=== PATIENT | male | born 1955 | race African-American/Black ===

== ENCOUNTER 2025-08-08 13:34 | Outpatient (AMB) | payer MEDICARE, SELFPAY ==
--- OUTSIDE RECORDS SUMMARY | 2022-06-30 17:32 | XMS_ITS | Encounter Summary ---
Author Organization [facility] Address [address] [place] [address] Care Team Providers Care Fisher Trap Name Role Phone Unavailable Primary Care Provider Unavailabl e Encounter Details Date Type Department Care Team ([facility] Contact Info) Description 06/30/2022 6:32 PM EDT Hospital Encounter [facility] [address] [place] [address] Lacho Doe MD [address] [place] [address] Social History Tobacco Use Types Packs/Day Years Used Date Smoking Tobacco: Never Smokeless Tobacco: Never Alcohol Use Standard Drinks/Week Comments Yes 0 (1 standard drink = 0.6 oz pur e alcohol) Sex and Gender Information Value Date Recorded Sex Assigned at Not on file Legal Sex Male 2:03 PM EDT Gender Identity Not on file Sexual Orientation Not on file COVID-19 Exposure Response Date Recorded In the last 10 days, have yo u been in contact with someone who was confirmed or suspected to have Coronavirus/COVID-19? Unable to assess 06/30/2022 5:55 PM EDT documented as of this encounter Plan of Treatment Not on file documented as of this encounter Procedures Procedure Name Priority Date/Time Associated Diagnosis Comments XR CHEST 2 VIEWS STAT 06/30/2022 6:44 PM EDT Acute cough documented in this encounter Results * XR Chest 2 views (06/30/2022 6:44 PM EDT) Anatomical Region Laterality Modality Chest Computed Radiogr aphy 06/30/2022 8:27 PM EDT Impressions 06/30/2022 8:28 PM EDT No acute cardiopulmonary findings. Narrative 06/30/2022 8:28 PM EDT EXAM: XR CHEST 2 VIEWS on 06/30/2022 6:32 PM CLINICAL HISTORY: REILLY MILLER is a 66 years old patient with a submitted history of cough. ADDITIONAL HISTORY: Acute cough COMPARISONS: None TECHNIQUE: PA and lateral views FINDINGS: HEART AND MEDIASTINUM: Within normal limits. VASCULARITY: Normal. LUNGS: Clear. PLEURAE: No effusion or pneumothorax. Procedure Note Julianna Carmichael MD - 06/30/2022 EXAM: XR CHEST 2 VIEWS on 06/30/2022 6:32 PM CLINICAL HISTORY: REILLY MILLER is a 66 years old patient with a submitted history of cough. ADDITIONAL HISTORY: Acute cough COMPARISONS: None TECHNIQUE: PA and lateral views FINDINGS: HEART AND MEDIASTINUM: Within normal limits. VASCULARITY: Normal. LUNGS: Clear. PLEURAE: No effusion or pneumothorax. IMPRESSION: No acute cardiopulmonary findings. [facility] ORDERABLE S Final Result documented in this encounter Visit Diagnoses Not on filedocumented in this encounter
--- OUTSIDE RECORDS SUMMARY | 2024-06-30 07:54 | XMS_ITS | Encounter Summary ---
Author Organization [facility] [place] [address] Care Team Providers Care Literary Writer Name Role Phone Noe White MD Primary Care Provider [phone] Encounter Details Date Type Department Care Team (Late st Contact Info) Description 06/30/2024 8:54 AM EDT Hospital Encounter TH HISTORIC ENCOUNTERS EASTERN CONVERSION ONLY Paula Delgado, ALICJA [address] [place] [address] Social History Tobacco Use Types Packs/Day Years Used Date Smoking Tobacco: Never Smokeless Tobacco: Never Alcohol Use Standard Drinks/Week Comments Yes 5 (1 standard drink = 0.6 oz pur e alcohol) Sex and Gender Information Value Date Recorded Sex Assigned at Not on file Legal Sex Male 10:06 PM EST Gender Identity Not on file Sexual Orientation Not on file documented as of this encounter Last Filed Vital Signs Vital Sign Reading Time Taken Comments Blood Pressure 142/80 06/30/2024 8:54 AM EDT Sitting Right arm Pulse 114 06/30/2024 8:54 AM EDT Temperature - - Respiratory Rate - - Oxygen Saturation - - Inhaled Oxygen Concentration - - Weight 143 kg (315 lb) 06/30/2024 8:54 AM EDT Height 165.1 cm (5' 5 ) 06/30/2024 8:54 AM EDT Body Mass Index 52.42 06/30/2024 8:54 AM EDT documented in this encounter Progress Notes * ALICJA Wells - 06/30/2024 9:00 AM EDT GASTROENTEROLOGY PROGRESS NOTE: REFERRING PHYSICIAN: Noe White MD [address] [place] [address] CHIEF COMPLAINT: Annual follow-up HISTORY OF PRESENT ILLNESS: Albert Hernández is a 68 y.o. male with a history of hyperlipidemia, diabetes and GERD presents to theGI office today for an annual follow-up visit. Patient last saw Dr. Anton in June 2023. Overall at patient's last office visit patient was doing well on Prilosec 40 mg daily for his history of GERD. He had recurrent symptoms in the past when he weaned down to every other day a few yearsprior. No dysphagia. ?? 11/03/2022 EGD showed fundic gland polyps, no H. pylori infection or Enriquez's esophagus. Colonoscopyat that time showed few adenomas. 3-year surveillance was recommended, to be due in October 2025. ?? He never smoked. Social alcohol use. Denies family h/o colon or gastric cancer. Overall patient's last office visit, it was recommended that patient stay on Prilosec 40 mg howevertry and decrease this to every other day. GERD diet and lifestyle was reinforced. Recommend checking vitamin D, vitamin B12 and magnesium level yearly. He never started vitamin D supplementation as previously recommended. On 07/19/2023 patient had a normal magnesium and vitamin B12 level. Vitamin D was low in which patient was advised to start 1000 international units of vitamin D supplementation daily with follow-up labs again in 1 year. Patient is coming to see me today for a follow-up visit. He remains on Prilosec 40 mg daily and is doing well. He never tried to wean this down to every other day. No dysphagia, odynophagia or unintentional weight loss. He is moving his bowels regularly. No abdominal pain, nausea, vomiting or blood in the stool. He has been taking an fpzv-vzx-pykpzbu vitamin D supplementation he believes 1000 international units daily. Of note, patient has a history of diabetes and is taking Lantus insulin and Mounjaro. Of note, in December 2022, patient had a nuclear stress test which showed myocardial perfusion imaging was normal. No evidence of pharmacologically-induced myocardial ischemia. Normal left ventricular size and systolic function. The LVEF is 65%. PROBLEM LIST: Patient Active Problem List Diagnosis SNOMED CT(R) ??? Lumbar herniated disc PROLAPSED LUMBAR INTERVERTEBRAL DISC ??? Esophagitis, reflux GASTRO-ESOPHAGEAL REFLUX DISEASE WITH ESOPHAGITIS ??? Morbid obesity (HCC) MORBID OBESITY ??? Difficult intravenous access DIFFICULT VENOUS ACCESS ??? GERD (gastroesophageal reflux disease) GASTROESOPHAGEAL REFLUX DISEASE ??? Encounter for screening colonoscopy PATIENT ENCOUNTER STATUS ??? Personal history of colon polyps, unspecified HISTORY OF POLYP OF COLON PAST MEDICAL HISTORY: Past Medical History: Diagnosis Date ??? Anemia ??? Diabetes mellitus, type II (HCC) ??? REAL (dyspnea on exertion) ??? GERD (gastroesophageal reflux disease) ??? Hypertension ??? Peripheral neuropathy LEFT FOOT PAST SURGICAL HISTORY: Past Surgical History: Procedure Laterality Date ??? BACK SURGERY ??? BICEPS TENDON REPAIR Right 1997 ??? COLONOSCOPY December 2011 Sigmoid diverticulosis. Hyperplastic polyp. Internal hemorrhoids. November 2007- hyperplastic polyps ??3. ??? COLONOSCOPY N/A 11/03/2022 Procedure: COLONOSCOPY pediscope; Surgeon: Ava Anton MD; Location: [facility]; Service: Gastroenterology; Laterality: N/A; 11/03/22 at 10:30 am 50 minutes plus 10 minutes for cleanup insurance in [facility] ??? JOINT REPLACEMENT Left 2013 knee ??? LUMBAR DISC SURGERY 20 years ago ??? LUMBAR EPIDURAL INJECTION N/A 05/05/2018 Procedure: Caudal Epidural with Cath; Surgeon: Marcelino Basurto MD; Location: [facility]; Service:Anesthesiology; Laterality: N/A; ??? LUMBAR EPIDURAL INJECTION N/A 02/01/2018 Procedure: Caudal epidural Block with Cath; Surgeon: Marcelino Basurto MD; Location: [facility]; Service: Anesthesiology; Laterality: N/A; ??? LUMBAR EPIDURAL INJECTION N/A 08/18/2016 Procedure: INJECTION STEROID LUMBAR EPIDURAL; Surgeon: Marcelino Basurto MD; Location: [facility]; Service: Anesthesiology; Laterality: N/A; ??? ROTATOR CUFF REPAIR Bilateral ??? TOTAL KNEE ARTHROPLASTY Left 2013 ??? TOTAL KNEE ARTHROPLASTY Right 09/16/2017 Procedure: REPLACEMENT TOTAL KNEE; Surgeon: Jonatan Kahn MD; Location: [facility]); Service: Orthopedics; Laterality: Right; ??? UMBILICAL HERNIA REPAIR ??? UPPER GASTROINTESTINAL ENDOSCOPY November 2007 Hiatal hernia. Reflux esophagitis. ??? UPPER GASTROINTESTINAL ENDOSCOPY N/A 11/03/2022 Procedure: UPPER ENDOSCOPY-EGD pediscope 50 minutes plus 10 minutes for cleanup; Surgeon: Ava Anton MD; Location: [facility]; Service: Gastroenterology; Laterality: N/A; 11/03/22 at 10:30am 50 minutes plus 10 minutes for cleanup insurance in [facility] FAMILY HISTORY: Family History Problem Relation Age of Onset ??? Breast cancer Mother 20 ??? Hypertension Father ??? Stroke Father ??? Heart disease Father ??? Cancer Sister 32 OVARIAN SOCIAL HISTORY: Social History Socioeconomic History ??? Marital status: Spouse name: Not on file ??? Number of children: Not on file ??? Years of education: Not on file ??? Highest education level: Not on file Occupational History ??? Not on file Tobacco Use ??? Smoking status: Never ??? Smokeless tobacco: Never Substance and Sexual Activity ??? Alcohol use: Yes Alcohol/week: 5.0 standard drinks of alcohol Types: 5 Cans of beer per week Comment: occasional ??? Drug use: No ??? 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 Other Topics Concern ??? Not on file Social History Narrative ??? Not on file Social Determinants of Health Financial Resource Strain: Not on file Food Insecurity: Not on file Transportation Needs: Not on file Social Connections: Not on file Housing Stability: Not on file MEDICATIONS: Current Outpatient Medications Medication Sig Dispense Refill ??? dilTIAZem (CARDIZEM LA) 300 MG 24 hr tablet ??? GRX ANALGESIC BALM (ICY HOT BALM EXTRA STRENGTH) OINT ointment Apply 1 application. topically daily as needed. ??? Lantus SoloStar 100 UNIT/ML injection 80 Units daily. ??? Mounjaro 12.5 MG/0.5ML INJECT 1 PEN UNDER THE SKIN WEEKLY ??? omeprazole (PriLOSEC) 40 MG capsule Take 1 capsule (40 mg total) by mouth daily. 90 capsule 0 ??? omeprazole (PriLOSEC) 40 MG capsule Take 1 capsule (40 mg total) by mouth daily. 90 capsule 3 ??? valsartan-hydrochlorothiazide (DIOVAN HCT) tablet 160-12.5 mg Take 1 tablet by mouth daily. No current facility-administered medications for this visit. ALLERGIES: Allergies Allergen Reactions ??? Etodolac Itching and Other (See Comments) REVIEW OF SYSTEMS: Review of Systems Constitutional: Negative for chills, fatigue and fever. HENT: Negative for sore throat and trouble swallowing. Respiratory: Negative for cough, shortness of breath and wheezing. Cardiovascular: Negative for chest pain, palpitations and leg swelling. Gastrointestinal: Negative for abdominal distention, abdominal pain, anal bleeding, blood in stool,constipation, diarrhea, nausea and vomiting. Genitourinary: Negative for dysuria and frequency. Musculoskeletal: Negative for arthralgias and back pain. Neurological: Negative for dizziness, light-headedness and headaches. Psychiatric/Behavioral: Negative for agitation, behavioral problems and confusion. VITAL SIGNS: Vitals: 06/30/24 0854 BP: 142/80 Pulse: 114 SpO2: 96% Weight: (!) 142.9 kg (315 lb) Height: 5' 5 (1.651 m) Body mass index is 52.42 kg/m??. PHYSICAL EXAM: Physical Exam Constitutional: General: He is not in acute distress. Appearance: He is not toxic-appearing or diaphoretic. HENT: Head: Normocephalic and atraumatic. Eyes: General: No scleral icterus. Cardiovascular: Rate and Rhythm: Normal rate and regular rhythm. Heart sounds: Normal heart sounds. No murmur heard. No gallop. Pulmonary: Effort: No respiratory distress. Breath sounds: Normal breath sounds. No wheezing, rhonchi or rales. Abdominal: General: Bowel sounds are normal. There is no distension. Palpations: Abdomen is soft. Tenderness: There is no abdominal tenderness. There is no guarding or rebound. Skin: General: Skin is warm. Neurological: Mental Status: He is alert and oriented to person, place, and time. Psychiatric: Mood and Affect: Mood normal. Behavior: Behavior normal. LABS: No visits with results within 6 Month(s) from this visit. Latest known visit with results is: Office Visit on 06/30/2023 Component Date Value Ref Range Status ??? VITAMIN B12 07/23/2023 790 200 - 1,100 pg/mL Final ??? Vitamin D,25-OH, Total 07/23/2023 25 (L) 30 - 100 ng/mL Final Comment: Vitamin D Status 25-OH Vitamin D: Deficiency: <20 ng/mL Insufficiency: 20 - 29 ng/mL Optimal: > or = 30 ng/mL For 25-OH Vitamin D testing on patients on D2-supplementation and patients for whom quantitation of D2 and D3 fractions is required, the QuestAssureD(TM) 25-OH VIT D, (D2,D3), LC/MS/MS is recommended: order code 42567 (patients >2yrs). See Note 1 Note 1 For additional information, please refer to http://education.Zipzoom/faq/FIM404 (This link is being provided for informational/ educational purposes only.) ??? MAGNESIUM 07/23/2023 1.8 1.5 - 2.5 mg/dL Final IMAGING: No results found. ASSESSMENT: Problem List Items Addressed This Visit Gastroenterology Problems GERD (gastroesophageal reflux disease) Relevant Medications omeprazole (PriLOSEC) 40 MG capsule Other Personal history of colon polyps, unspecified Other Visit Diagnoses Long-term current use of proton pump inhibitor therapy - Primary Relevant Orders Magnesium 25-Hydroxy Vitamin D Vitamin B12 PLAN: 1. GERD- See HPI for full details. Plan: -Patient is overall doing well Prilosec 40 mg daily. He never previously tried to wean down to every other day as previously recommended. He is going to give this a try. If he notices any recurrent symptoms he will go back to daily dosing. A refill was sent to his desired pharmacy. No alarm symptoms present to warrant any need for repeat EGD. -Plan to check yearly vitamin B12, magnesium and vitamin D levels. He does take a vitamin D supplementation at baseline. -Follow-up in 1 year or sooner.. 2. HX colon polyps- See HPI for full details. Plan: -Repeat colonoscopy due in October 2025. ORDERS: Orders Placed This Encounter Procedures ??? Magnesium Standing Status: Future Number of Occurrences: 1 Standing Expiration Date: 06/30/2025 Order Specific Question: Release to patient Answer: Immediate [1] ??? 25-Hydroxy Vitamin D Standing Status: Future Number of Occurrences: 1 Standing Expiration Date: 06/30/2025 Order Specific Question: Release to patient Answer: Immediate [1] ??? Vitamin B12 Standing Status: Future Number of Occurrences: 1 Standing Expiration Date: 06/30/2025 Order Specific Question: Release to patient Answer: Immediate [1] Prescriptions Ordered This Encounter Medications ? omeprazole (PriLOSEC) 40 MG capsule Sig: Take 1 capsule (40 mg total) by mouth daily. Dispense: 90 capsule Refill: 3 ALICJA [facility] documented in this encounter Plan of Treatment Not on file documented as of this encounter Visit Diagnoses Not on filedocumented in this encounter Care Teams Literary Writer Relationship Specialty Start Date End Date Noe White MD [address] [place] [address] PCP - General Internal Medicine 10/31/14 documented as of this encounter
--- NOTE | 2025-08-08 13:40 | HO.NEPHOV ---
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: No Accompanied by: Self / Same As Patient Allergies lodine Allergy (Unknown, Uncoded 07/20/25 15:05) Unknown Medication List - Last Reconciled 08/08/25 by Dylan Zamudio MD atorvastatin 40 mg PO DAILY cholecalciferol (vitamin D3) 25 mcg PO DAILY diltiazem HCl CD 300 mg PO DAILY insulin glargine (Lantus Solostar U-100 Insulin) 76 units subcut QAM insulin lispro-aabc (Lyumjev KwikPen U-200 Insulin) 8 units subcut TID PRN omeprazole 40 mg PO DAILY tirzepatide (Mounjaro) mg subcut QWEEK valsartan-hydrochlorothiazide 320-25 mg 1 tab PO DAILY HPI Comments Details: History of Present Illness The patient is a 69 year old male presenting for evaluation of decreased kidney function. He was referred by his primary care physician, Dr. White, after lab work showed reduced kidney function, a finding the patient was not previously aware of. The patient has a history of diabetes for approximately 3-4 years or possibly longer and hypertension for which he has been on long-term medication. He takes Mounjaro and has lost approximately 40 pounds from a starting weight of 343 pounds. He reports symptoms of shortness of breath that occurs after showering, which has been present for about a year, as well as general fatigue. He also notes an intermittent urinary stream and occasional foamy urine. He denies neuropathy, hematuria, kidney stones, nausea, vomiting, or swelling in his legs. 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 His family history is notable for a son with diabetes, a mother who from breast cancer, and a sister with a history of breast cancer. There is no known family history of kidney failure or dialysis. Results - Labs: Kidney function is reportedly at 23%. 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 Comfortable. HENT: Neck supple. Mucosa moist. Pulmonary: Lungs aeration equal. No rales. Cardiology: Heart S1-S2 heard. No gallop. Abdomen: Soft. Non tender. Bowel sounds normal. Neurologic: No involuntary movements. No myoclonus. Extremities: No edema. No rash. Vital Signs: Last Vital Signs Pulse 106 H 08/08/25 13:41 BP 110/70 08/08/25 13:54 Pulse Ox 96 08/08/25 13:41 Oxygen Delivery Method Room Air 08/08/25 13:41 BMI result Body Mass Index 53.1 Assessment & Plan Assessment & Plan (1) CKD (chronic kidney disease): Code(s): N18.9 - Chronic kidney disease, unspecified Category: Medical Plan Plan 1. Chronic Kidney Disease - The patient's kidney function is at approximately 23%, likely secondary to long-standing diabetes. - Further workup will include additional blood tests, urine tests, and a kidney ultrasound. - His antihypertensive medication will be adjusted by discontinuing valsartan/hydrochlorothiazide 320/25 mg and starting valsartan 160 mg. - He was advised to avoid NSAIDs (Advil, Aleve, Motrin) and to use Tylenol as an alternative for pain. - Recommendations were made to reduce dietary salt and maintain adequate hydration. - A discussion was held regarding the potential need for dialysis if kidney function falls to 10% or less. - Follow-up is scheduled for September 12 to review lab results, which are to be drawn on September 03. 2. Diabetes Mellitus - The patient's long-standing diabetes is the presumed cause of his chronic kidney disease. - No changes will be made to his current diabetes medication regimen, which includes Mounjaro. 3. Hypertension - Blood pressure was well-controlled in the office with readings of 120/74 mmHg and 110/60 mmHg. - His medication will be adjusted from valsartan/hydrochlorothiazide to a lower dose of valsartan alone to provide better kidney protection while maintaining blood pressure control. Patient Instructions - Stop taking your current blood pressure pill, which is valsartan combined with hydrochlorothiazide. - Start taking valsartan 160 mg once a day. - Please get blood work done on September 03. - We will also order an ultrasound of your kidneys. - Avoid taking pain medications like Advil, Aleve, Motrin, and ibuprofen. - It is safe to take Tylenol if you need pain relief. - Eat less salt in your diet and drink plenty of water. - Your follow-up appointment is scheduled for September 05. Orders: Orders UA and rflx microscopic 3 Weeks N18.9 - Chronic kidney disease, unspecified Complete Blood Count no Diff 3 Weeks N18.9 - Chronic kidney disease, unspecified Parathyroid Hormone Intact 3 Weeks N18.9 - Chronic kidney disease, unspecified Protein Electrophoresis, Serum 3 Weeks N18.9 - Chronic kidney disease, unspecified Comprehensive Met. Panel 3 Weeks N18.9 - Chronic kidney disease, unspecified Creatinine Urine 3 Weeks N18.9 - Chronic kidney disease, unspecified Total Protein Urine Random 3 Weeks N18.9 - Chronic kidney disease, unspecified Medications: New valsartan 160 mg PO DAILY 90 tabs 1RF Patient Instructions: - Stop taking your current valsartan/hydrochlorothiazide; 320/25 - Start taking valsartan 160 mg once a day. - Please get blood work done on September 03. - We will also order an ultrasound of your kidneys. - Avoid taking pain medications like Advil, Aleve, Motrin, and ibuprofen. - It is safe to take Tylenol if you need pain relief. - Eat less salt in your diet and drink plenty of water. - Your follow-up appointment is scheduled for September 05. Coding Level of Care Code New Pt Level 4 (16247) Diagnoses CKD (chronic kidney disease) N18.9
[2025-08-08 13:41] VITALS: BP 120/74; PULSE 106; O2SAT 96; BMI 53.1
[2025-08-08 13:54] VITALS: BP 110/70
--- OUTSIDE RECORDS SUMMARY | 2025-08-08 21:03 | XMS_ITS | Clinical Summary ---
Author Organization [facility] Address [address] [place] [address] Care Team Providers Care Janitor Helper Name Role Phone Noe White MD Primary Care Provider [phone] Surgical History Surgery Date Site/Laterality Comments BACK SURGERY PROCEDURE:BACK SURGERY ROTATOR CUFF REPAIR Bilateral PROCEDURE:ROTATOR CUFF REPAIR JOINT REPLACEMENT 2013 Left PROCEDURE:JOINT REPLACEMENT;COMMENT:knee BICEPS TENDON REPAIR 1997 Right PROCEDURE:BICEPS TENDON REPAIR COLONOSCOPY December 2011 PROCEDURE:COLONOSCOPY;COMMEN T:Sigmoid diverticulosis. Hyperplastic polyp. Internal hemorrhoids. November 2007 h yperplastic polyps 3. UPPER GASTROINTESTINAL ENDOSCOPY November 2007 PROCEDURE:UPPER GASTROINTESTINAL ENDOSCOPY;COMMENT:Hiatal hernia. Reflux esophagitis. TOTAL KNEE ARTHROPLASTY 2013 Left PROCEDURE:TOTAL KNEE ARTHROPLASTY UMBILICAL HERNIA REPAIR PROCEDURE:UMBILICAL HERNIA REPAIR LUMBAR DISC SURGERY 20 years ago PROCEDURE:LUMBAR DISC SURGERY LUMBAR EPIDURAL INJECTION 05/05/2018 N/A PROCEDURE:LUMBAR EPIDURAL INJECTION;COMMENT:Procedure: Caudal Epidural with Cath; Surgeon: Marcelino Basurto MD; Location: [facility]; Service: Anesthesiology; Laterality: N/A; LUMBAR EPIDURAL INJECTION 02/01/2018 N/A PROCEDURE:LUMBAR EPIDURAL INJECTION;COMMENT:Procedure: Caudal epidural Block with Cath; Surgeon: Marcelino Basurto MD; Location: [facility]; Service: Anesthesiology; Laterality: N/A; TOTAL KNEE ARTHROPLASTY 09/16/2017 Right PROCEDURE:TOTAL KNEE ARTHROPLASTY;COMMENT:Procedu re: REPLACEMENT TOTAL KNEE; Surgeon: Jonatan Kahn MD; Location: [facility] Service: Orthopedics; Laterality: Right; LUMBAR EPIDURAL INJECTION 08/18/2016 N/A PROCEDURE:LUMBAR EPIDURAL INJECTION;COMMENT:Procedure: INJECTION STEROID LUMBAR EPIDURAL; Surgeon: Marcelino Basurto MD; Location: [facility]; Service: Anesthesiology; Laterality: N/A; COLONOSCOPY 11/03/2022 N/A PROCEDURE:COLONOSCOPY;COMMEN T:Procedure: COLONOSCOPY pediscope; Surgeon: Ava Anton MD; Location: [facility]; Service: Gastroenterology; Laterality: N/A; 11/03/22 at 10:30 am 50 minutes plus 10 minutes for cleanup insurance in [facility] UPPER GASTROINTESTINAL ENDOSCOPY 11/03/2022 N/A PROCEDURE:UPPER GASTROINTESTINAL ENDOSCOPY;COMMENT:Procedure: UPPER ENDOSCOPY-EGD pediscope 50 minutes plus 10 minutes for cleanup; Surgeon: Ava Anton MD; Location: [facility]; Service: Gastroenterology; Laterality: N/A; 11/03/22 at 10:30 am 50 minutes plus 10 minutes for cleanup [employer] Medical History Medical History Date Comments Hypertension DX:Hypertension Diabetes mellitus, type II ( [facility] V24, [facility] V28) DX:Diabetes mellitus, type I I ([facility]) GERD (gastroesophageal reflux disease) DX:GERD (gastroesophageal reflux disease) Peripheral neuropathy DX:Periphe ral neuropathy;COMMENT:LEFT FOOT Anemia DX:Anemia REAL (dyspnea on exertion) DX:REAL (dyspnea on exertion) Family History Medical History Relation Name Comments Heart disease Father Hypertension Father Stroke Father Breast cancer Mother Cancer Sister 1 OVARIAN Relation Name Status Comments Brother 1 Alive Brother 2 Alive Father (Age 85) STROKE Mother (Age 56) BREAST CA Sister 1 Alive Sister 2 Alive Sister 3 Alive Social History Tobacco Use Types Packs/Day Years Used Date Smoking Tobacco: Never Smokeless Tobacco: Never Alcohol Use Standard Drinks/Week Comments Yes 5 (1 standard drink = 0.6 oz pur e alcohol) Sex and Gender Information Value Date Recorded Sex Assigned at Not on file Legal Sex Male 10:06 PM EST Gender Identity Not on file Sexual Orientation Not on file Last Filed Vital Signs Vital Sign Reading [...] Mass Index 52.42 06/30/2024 8:54 AM EDT Plan of Treatment Health Maintenance Due Date Last Done Comments Colorectal Cancer Screening: Colonoscopy 1954 DTaP,Tdap,and Td Vaccines (1 - Tdap) 1973 Pneumococcal Vaccine: 50+ Years (1 of 1 - PCV) 2004 RSV Immunization Adult Patients (1 - Risk 50-74 years 1-dose series) 2004 Cholesterol Screening (Lipid Panel) 08/01/2022 Falls Risk Assessment 08/01/2022 Hepatitis C Screening 08/01/2022 Medicare Annual Wellness Visit 08/01/2022 Social Influencers of Health Screening 08/01/2022 Depression Screening 08/30/2024 COVID-19 Vaccine ( season) 2025 05/05/2025 Zoster Vaccines Completed 07/24/2020, 05/16/2020 Influenza Vaccine Completed 05/05/2025, , 06/08/2018, Additional history exists HIB Vaccines Aged Out No longer eligi ble based on patient's age to complete this topic HPV Vaccines Aged Out No longer eligi ble based on patient's age to complete this topic Hepatitis A Vaccines Aged Out No long er eligible based on patient's age to complete this topic Hepatitis B Vaccines Aged Out No long er eligible based on patient's age to complete this topic IPV Vaccines Aged Out No longer eligi ble based on patient's age to complete this topic MMR Vaccines Aged Out No longer eligi ble based on patient's age to complete this topic Meningococcal ACWY Vaccine Aged Out N o longer eligible based on patient's age to complete this topic Meningococcal B Vaccine Aged Out No l onger eligible based on patient's age to complete this topic RSV Immunization Patients Under 20 months Aged Out No longer eligible based on patient's age to complete this topic Varicella Vaccines Aged Out No longer eligible based on patient's age to complete this topic Insurance [employer] MEDICARE Care Teams Janitor Helper Relationship Specialty Start Date End Date Noe White MD [address] [place] [address] PCP - General Internal Medicine 10/31/14
--- OUTSIDE RECORDS SUMMARY | 2025-08-08 21:03 | XMS_ITS | Clinical Summary ---
Author Organization [facility] Address [address] [place] [address] Care Team Providers Care Computer Technical Support Specialist Name Role Phone Noe White Md Primary Care Provider Unavail able Allergies Active Allergy Reactions Criticality Noted Date Comments Etodolac Unknown/Patient and Family Unable to Define Medium 08/30/2020 Medications OMEprazole (PriLOSEC) 40 MG capsule Take by mouth daily. 06/11/2022 Active valsartan-hydro chlorothiazide (DIOVAN-HCT) 160-12.5 MG per tablet Take 1 tablet by mouth daily. Active diltiazem (CARDIZEM LA) 300 MG 24 hr tablet 05/28/2022 Active Lantus SoloStar 100 UNIT/ML prefilled pen injection 06/25/2022 Active atorvastatin (LIPITOR) 10 MG tablet Take 1 tablet (10 mg total) by mouth daily. Active fluticasone (FloVENT HFA) 110 mcg/puff inhalerIndicati ons:Acute cough,REAL (dyspnea on exertion) Inhale 1 puff 2 (two) times a day. 12 g 06/30/2022 Active benzonatate (TESSALON) 200 MG capsuleIndicati ons:Cough in adult Take 1 capsule (200 mg total) by mouth 3 (three) times a day as needed for cough. 20 capsule 08/30/2020 Active Active Problems No known active problems Family History Medical History Relation Name Comments Breast cancer Mother Stroke Sister Relation Name Status Comments Father Mother Sister Social History Tobacco Use Types Packs/Day Years Used Date Smoking Tobacco: Never Smokeless Tobacco: Never Tobacco Cessation:Counseling Given: Not Answered Alcohol Use Standard Drinks/Week Comments Yes 0 (1 standard drink = 0.6 oz pur e alcohol) Sex and Gender Information Value Date Recorded Sex Assigned at Not on file Legal Sex Male 2:03 PM EDT Gender Identity Not on file Sexual Orientation Not on file Last Filed Vital Signs Vital Sign Reading Time Taken Comments Blood Pressure 102/65 01/19/2025 2:35 PM EDT Pulse 80 01/19/2025 2:35 PM EDT Temperature 36.7 C (98.1 F) 01/19/2025 2:35 PM EDT Respiratory Rate 12 01/19/2025 2:35 PM EDT Oxygen Saturation 97% 01/19/2025 2:35 PM EDT Inhaled Oxygen Concentration - - Weight 146 kg (322 lb) 01/19/2025 2:35 PM EDT Height 167.6 cm (5' 6 ) 01/19/2025 2:35 PM EDT Body Mass Index 51.97 01/19/2025 2:35 PM EDT Plan of Treatment Health Maintenance Due Date Last Done Comments Advance Care Planning 1955 Hepatitis C Virus Screening 1954 DTaP/Tdap/Td Vaccines (1 - Tdap) 1973 Pneumococcal Vaccines 50+ (1 of 1 - PCV) 2004 RSV Vaccine 50 years and older and Patients (1 - Risk 50-74 years 1-dose series) 2004 Zoster (Shingles) Vaccine (1 of 2) 2004 Influenza Vaccine 03/30/2025 05/22/2024, , 05/19/2023, Additional history exists COVID-19 Vaccine ( season) 2025 05/22/2024, 06/22/2023, 06/10/2022, Additional history exists Colonoscopy 11/03/2032 11/03/2022 Hepatitis B Vaccines Aged Out No long er eligible based on patient's age to complete this topic Insurance [employer] MEDICARE MEDICARE PART A & B Care Teams Computer Technical Support Specialist Relationship Specialty Start Date End Date Noe White Md PCP - General 04/20/24
--- OUTSIDE RECORDS SUMMARY | 2025-08-08 21:03 | XMS_ITS | Encounter Summary ---
Author Organization [facility] Address [address] [place] [address] Care Team Providers Care Chain Offbearer Name Role Phone Noe White MD Unavailable [phone] Noe White Md Primary Care Provider Unavail able Encounter Details Date Type Department Care Team (Late st Contact Info) Description 07/24/2024 Scanned Document [facility] [address] [place] [address] Marcelino Christianson MD [address] [place] [address] Social History Tobacco Use Types Packs/Day Years [...] on file documented as of this encounter Plan of Treatment Not on file documented as of this encounter Visit Diagnoses Not on filedocumented in this encounter Care Teams Chain Offbearer Relationship Specialty Start Date End Date Noe White MD [address] [place] [address] PCP - APNCT [employer] Attributed 08/30/22 08/29/24 Noe White Md PCP - General 04/20/24 documented as of this encounter
--- OUTSIDE RECORDS SUMMARY | 2025-08-08 21:04 | XMS_ITS | Clinical Summary ---
Author Organization [facility] Facility Address [address] [address] Care Team Providers Care Coagulating Drying Supervisor Name Role Phone Noe White MD Primary Care Provider [phone] Social History Tobacco Use Types Packs/Day Years Used Date Smoking Tobacco: Never Assessed Sex and Gender Information Value Date Recorded Sex Assigned at Not on file Legal Sex Male 3:06 PM EST Gender Identity Not on file Sexual Orientation Not on file Plan of Treatment Health Maintenance Due Date Last Done Comments Colorectal Cancer Screening: Annual FOBT 12/03/2003 Colorectal Cancer Screening: Colonoscopy 12/03/2003 Colorectal Cancer Screening: Sigmoidoscopy 12/03/2003 Pneumococcal Vaccine: 50+ Ye ars (1 of 1 - PCV) 2004 Influenza Vaccine (#1) 2025 Hepatitis B Vaccine Aged Out No longe r eligible based on patient's age to complete this topic Care Teams Coagulating Drying Supervisor Relationship Specialty Start Date End Date Noe White MD [address] [place] [address] [facility] [place] PCP - General Internal Medicine 11/06/20
--- OUTSIDE RECORDS SUMMARY | 2025-08-08 21:04 | XMS_ITS | Clinical Summary ---
Author Organization [facility] Prior [facility] 01[facility]25 Address [address] [place] [address] Care Team Providers Care Entry Level Electrical Engineer Name Role Phone Noe White MD Primary Care Provider [phone] Allergies Active Allergy Reactions Criticality Noted Date Comments Etodolac Itching,Other (See Comments) Medium 015 Medications Medication Sig Dispensed Refills Start Date End Date Status GRX ANALGESIC BALM (ICY HOT BALM EXTRA STRENGTH) OINT ointment Apply 1 application. topically daily as needed. 0 Active valsartan-hydrochlo rothiazide (DIOVAN HCT) tablet 160-12.5 mg Take 1 tablet by mouth daily. 0 Active dilTIAZem (CARDIZEM LA) 300 MG 24 hr tablet 0 05/28/2022 Active Lantus SoloStar 100 UNIT/ML injection 80 Units daily. 0 06/25/2022 Ac tive omeprazole (PriLOSEC) 40 MG capsule Take 1 capsule (40 mg total) by mouth daily. 90 capsule 0 05/03/2024 Active Mounjaro 12.5 MG/0.5ML INJECT 1 PEN UNDER THE SKIN WEEKLY 0 05/08/2024 Active Active Problems Problem Noted Date Diagnosed Date Personal history of colon polyps, unspecified GERD (gastroesophageal reflux disease) 3 Overview: Added automatically from request for surgery [id number] Encounter for screening colonoscopy 09/04/2022 Overview: Added automatically from request for surgery [id number] Difficult intravenous access 05/05/2018 Morbid obesity 08/25/2017 Esophagitis, reflux 06/20/2015 Lumbar herniated disc 11/20/2014 Family History Medical History Relation Name Comments [...] Answered Alcohol Use Standard Drinks/Week Comments Yes 5 (1 standard drink = 0.6 oz pur e alcohol) occasional Sex and Gender Information Value Date Recorded Sex Assigned at Male 10/08/2020 4:21 AM EST Gender Identity Male 11/03/2022 10:09 AM EST Sexual Orientation Straight 11/03/2022 10 :09 AM EST Job Start Date Occupation Industry Not on file Not on file Not on file Last Filed Vital Signs Vital Sign Reading Time Taken Comments Blood Pressure 142/80 06/30/2024 8:54 AM EDT Pulse 114 06/30/2024 8:54 AM EDT Temperature 36.1 C (96.9 F) 11/03/2022 10:06 AM EST Respiratory Rate 16 11/03/2022 12:54 PM EST Oxygen Saturation 96% 06/30/2024 8:54 AM EDT Inhaled Oxygen Concentration - - Weight 142.9 kg (315 lb) 06/30/2024 8:54 AM EDT Height 165.1 cm (5' 5 ) 06/30/2024 8:54 AM EDT Body Mass Index 52.42 06/30/2024 8:54 AM EDT Plan of Treatment Health Maintenance Due Date Last Done Comments Hepatitis C Screening 1954 Depression Screening 1966 BMI Counseling 1972 Preventative Health Evaluation 1972 DTap / Tdap / Td (1 - Tdap) 1973 Fall Risk Assessment 12/03/2019 Pneumococcal Vaccine (1 of 1 - PCV) 12/03/2019 COVID-19 Vaccine ( season) 2025 06/22/2023, 06/10/2022, 06/05/2021, Additional history exists Influenza Vaccine (#1) 2025 3, 06/03/2022, 06/05/2021, Additional history exists RSV Adult > 60+ Yrs or (1 - 1-dose 75+ series) 2029 Colon Cancer Screening (Colonoscopy) 11/03/2032 11/03/2022 Shingrix-Zoster Vaccine Completed 07/24/2020, 05/16 Hepatitis B Vaccines Aged Out No long er eligible based on patient's age to complete this topic RSV Ped < 20 months Aged Out No longe r eligible based on patient's age to complete this topic Medical Devices Implanted Type Area Liquid Fertilizer Servicer Device Identifier Shelf Expiration Date Model / Serial / Lot Component Femoral Cruciate Retaining Beaded Rt Size 5 W\Ester - [id number] - [id number] Implanted:Qty: 1 on 09/16/2017 by Jonatan Kahn MD [facility] Right: Knee [employer] 01/29/2022 [id number] / / [id number] Insert Triathlon 6 11mm Cndylr Stabilized X3 Tibial Knee - [id number] - [id number] Implanted:Qty: 1 on 09/16/2017 by Jonatan Kahn MD at [facility] Right: Knee [employer] 06/11/2021 [id number] / / [id number] Tritanium Asymmetric Metal Backed Patella 32mm - [id number] - [id number] Implanted:Qty: 1 on 09/16/2017 by Jonatan Kahn MD at [facility] Right: Knee [employer] 04/21/2022 5552-[id number] / / [id number] Triathlon Tritanium Baseplate Size 6 - [id number] - [id number] Implanted:Qty: 1 on 09/16/2017 by Jonatan Kahn MD at [facility] Right: Knee [employer] 12/07/2021 [id number] / / [id number] Advance Directives For more information, please contact: [phone] Documents on File Type Date Recorded Patient Triple Valve Mechanic Expl anation Advance Directive and Living Will 02/01/2018 1:16 PM Latest Code Status on File Code Status Date Activated Date Inactivated Comments Full Code 11/03/2022 12:28 PM 11/03/2022 7:46 PM This c ode status was ascertained in the following way:chart . Code Status History Code Status Date Activated Date Inactivated Comments Full Code 09/16/2017 7:07 AM 09/17/2017 7:13 PM This code status was ascertained in the following way: discussion with patient . Full Code 09/16/2017 5:32 AM 09/16/2017 7:07 AM This code status was ascertained in the following way: discussion with patient . Care Teams Entry Level Electrical Engineer Relationship Specialty Start Date End Date Noe White MD [address] [place] [address] (work) PCP - General Internal Medicine 10/31/14
== END 2025-08-08 14:03 | disposition home or self-care (01) ==
LOC: HO.HKAE 13:35
PROVIDERS: PCP Internal Medicine; Visit Provider Internal Medicine Hypertension Specialist
DX: N18.9 Chronic kidney disease, unspecified (principal)
CPT/HCPCS: 99204

== ENCOUNTER → 2025-08-08 13:34 | Outpatient (BNVA) | payer MEDICARE, SELFPAY | PROVIDERS: PCP Internal Medicine; Visit Provider Internal Medicine Hypertension Specialist | DX: I12.9 Hypertensive chronic kidney disease with stage 1 through stage 4 chronic kidney disease, or unspecified chronic kidney disease (principal); N18.9 Chronic kidney disease, unspecified; E11.22 Type 2 diabetes mellitus with diabetic chronic kidney disease; Z79.85 Long-term (current) use of injectable non-insulin antidiabetic drugs; Z79.899 Other long term (current) drug therapy; Z79.4 Long term (current) use of insulin | CPT/HCPCS: 99202 ==